=== PATIENT | female | born 1990 | race Caucasian/White ===

== ENCOUNTER 2023-01-09 14:37 | Outpatient (CLI) | payer OTHER, SELFPAY ==
--- NOTE | 2023-01-09 | ECG_ITS ---
Measurements Intervals [place] Rate: 70 P: 28 MA: 129 QRS: -27 QRSD: 105 T: 9 QT: 412 QTc: 446 Interpretive Statements SINUS RHYTHM INCOMPLETE RIGHT BUNDLE BRANCH BLOCK DELAYED PRECORDIAL R/S TRANSITION MINIMAL Q WAVES- HIGH LATERAL LEADS BORDERLINE T WAVE ABNORMALITY- ANT/INF LEADS BORDERLINE ECG NO PREVIOUS ECG AVAILABLE FOR COMPARISON Electronically Signed On 01-09-2023 15:22:04 CDT by Tk Barbosa D.O.
== END 2023-01-09 14:38 | disposition home or self-care (01) ==
PROVIDERS: PCP Emergency Medicine; Visit Provider Emergency Medicine
DX: Z01.818 Encounter for other preprocedural examination (principal); I45.10 Unspecified right bundle-branch block
CPT/HCPCS: 93005

== ENCOUNTER 2023-02-14 08:48 | Outpatient (CLI) | payer OTHER, SELFPAY ==
--- NOTE | 2023-02-14 | EST_ITS ---
Patient Info Name: Angely Carreno Age: 33 years : 1990 Gender: Female Ht: 64 in Wt: 219 lbs BSA: 2.17 m2 HR: 73 bpm BP: 133 / 90 mmHg Heart Rhythm: Sinus Rhythm Exam Date: 02/14/2023 9:40 AM Exam Location: [facility] Stress Patient Status: Outpatient Admit Date: 02/14/2023 Staff Ordering Physician: Tk Barbosa DO Attending Provider: Tk Barbosa DO Exercise Technologist: Jaquelin Gutierrez CT Exercise Physician: Tk Barbosa DO Exam Type: CA stress test treadmill Study Info Indications Z01.810 - Encounter for preprocedural cardiovascular examination R06.09 - Other forms of dyspnea A treadmill exercise stress test was performed. Summary 1. 1. Negative Vargas exercise stress test for ischemic ST changes by ECG criteria. 2. 2. Reduced functional capacity, achieving 8.5 METs of workload. 3. 3. Appropriate HR response to exercise. 4. 4. Appropriate HR recovery at 1 minute post exercise. 5. 5. No imaging with stress testing. 6. 6. Patient informed of the above results. Protocol: Vargas Rest HR: 73 bpm Peak HR: 151 bpm Rest Sys BP: 133 mmHg Peak Sys BP: 174 mmHg Max Pred HR: 186 bpm % Max Pred HR: 81 % Target HR: 158 bpm Max RPP: 26,274 bpm*mmHg Termination Reason: Motor/gait limitations, Shortness of breath Total Time: 7 min : 26 sec Rest Benito BP: 90 mmHg Peak Benito BP: 90 mmHg Resting ECG Sinus rhythm, IRBBB. Stress ECG No ST changes. Arrhythmias None. Report Signatures
== END 2023-02-14 08:49 | disposition home or self-care (01) ==
PROVIDERS: PCP Emergency Medicine; Visit Provider Internal Medicine Cardiovascular Disease
DX: R06.09 Other forms of dyspnea (principal)
CPT/HCPCS: 93017

== ENCOUNTER 2023-05-11 13:34 | Emergency (ER) | payer OTHER, SELFPAY ==
[2023-05-11] VITALS (19 sets, daily range): BP systolic 100–141; BP diastolic 72–91; PULSE 63–112; RESP 12–20; TEMP 36.4; O2SAT 96–100
[2023-05-11 14:16] LABS: Basophils Percent Auto 0.4 % (0.2-1.2); Eosinophils Absolute Auto 0.1 K/mm3 (0-0.3); Eosinophils Percent Auto 1.3 % (0-4.4); Hematocrit 39.1 % (37.0-47.0); Hemoglobin 12.8 g/dL (12.0-15.0); Immature Granulocyte Absolute 0.03 K/mm3 (0.00-0.031); Immature Granulocyte Percent A 0.4 % (0-0.5); Lymphocytes Absolute Auto 1.48 K/mm3 (0.9-3.2); Lymphocytes Percent Auto 17.4 % (18.3-44.2); Mean Corpuscular HGB Conc 32.7 g/dl (32-36); Mean Corpuscular Hemoglobin 27.5 pg (26-34); Mean Corpuscular Volume 84.1 fl (80-100); Mean Platelet Volume 10.1 fl (7.4-10.4); Monocytes Absolute Auto 0.5 K/mm3 (0.1-0.6); Monocytes Percent Auto 5.3 % (2.6-8.5); Neutrophils Absolute Auto 6.4 K/mm3 (1.3-6.7); Neutrophils Percent Auto 75.2 % (45.5-73.1); Platelet Count Result 295 k/mm3 (150-375); Red Blood Count 4.65 M/mm3 (4.2-5.4); Red Cell Distribution Width 16.2 % (11.5-14.5); White Blood Count 8.5 K/mm3 (4.5-10.0)
[2023-05-11 14:25] LABS: Alanine Aminotransferase 29 U/L (6-35); Albumin Level 4.5 g/dL (3.5-5.1); Alkaline Phosphatase 93 U/L (38-126); Anion Gap 14 mmol/L (8-16); Aspartate Amino Transferase 28 U/L (14-36); Bilirubin,Total 0.4 mg/dL (0.2-1.3); Blood Urea Nitrogen 12 mg/dL (7-17); Calcium 9.1 mg/dL (8.4-10.2); Carbon Dioxide 20 mmol/L (22-30); Chloride 104 mmol/L (98-107); Estimated CRCL calculation 134 ml/min; Estimated Glomerular Filt Rate > 60; Glucose 131 mg/dL (65-110); Lipase 468 U/L (23-300); Potassium 3.8 mmol/L (3.4-5.0); Sodium 138 mmol/L (137-145)
[2023-05-11 14:41] LABS: Appearance Urine Turbid (Clear); Bacteria Urine 4+ /hpf; Bilirubin Urine Negative (Negative); Blood Urine 3+ (Negative); Color Urine Dark Yellow (Yellow); Glucose Urine UA Negative (Negative); Ketones Urine 3+ mg/dL (Negative); Leukocyte Esterase Ur 2+ LEU/UL (Negative); Need Manual Microscopic Reviewed; Nitrate Urine Negative (Negative); Non Pathogenic Casts 0-2; Protein Urine 2+ mg/dL (Negative); RBC Urine 51-100 /hpf (0-2); Specific Grav Ur 1.024 (1.001-1.035); Squamous Epithelial Cell Urine Many /hpf (Few); WBC Urine 21-50 /hpf; pH Urine 5.5 (5.0-9.0)
[2023-05-11 14:42] LABS: Add Urine Microscopic? YES
[2023-05-11] MEDS: ONDANSETRON INJ 4 MG/2 ML VIAL IV PUSH (14:50)
[2023-05-11] MEDS: PANTOPRAZOLE SODIUM IV 40 MG VIAL IV PUSH (14:51)
[2023-05-11] MEDS: SODIUM CHLORIDE 0.9% IV 1,000 ML 999 ML IV CONT (14:51)
--- NOTE | 2023-05-11 16:21 | ED.GENADULT ---
HPI - General Adult General Chief complaint: Nausea/Vomiting/Diarrhea Stated complaint: vomiting Time Seen by Provider: 05/11/23 14:32 History of Present Illness HPI narrative: Patient is a 33-year-old female who presents ER with nausea and vomiting. Ongoing for 2 weeks. She is having difficulty keeping down any fluids. She recently had a gastric sleeve performed at [facility]. She had contacted her physician who told her to come to his facility for further evaluation. She reports her insurance does not cover her to go to [facility] so she came to the closest facility. She is having bowel movements and passing gas. There is no abdominal distention. Record search shows patient has prescription for Zofran and omeprazole at home. It looks like she just had promethazine prescribed today. Patient has no fevers or chills or sweats. She does report some dysuria as well. Occasional lower abdominal cramping. Related Data Home Medications Medication Instructions Recorded Confirmed No Home Medications 01/30/23 01/30/23 Allergies Allergy/AdvReac Type Severity Reaction Status Date / Time Penicillins Allergy Unknown Nausea and Verified 05/11/23 14:36 Vomiting Review of Systems Review of Systems: All systems reviewed & are unremarkable except as noted in HPI and below Constitutional: Constitutional: Denies chills, Denies fatigue and Denies fever(s) ENT: Denies nasal congestion and Denies sore throat Cardiovascular: Cardiovascular: Denies chest pain, Denies rapid heart rate and Denies radiating jaw, neck or arm pain Gastrointestinal: Gastrointestinal: Reports abdominal pain, Denies diarrhea, Reports nausea and Reports vomiting Genitourinary: Genitourinary: Denies nocturia, Reports dysuria and Denies flank pain PMFSH Past Medical History Medical History (Updated 05/11/23 @ 16:47 by Alvino Diane MD) GERD (gastroesophageal reflux disease) Surgical History Surgical History (Updated 05/11/23 @ 16:26 by Alvino Diane MD) History of gastric surgery Social History Social History (Updated 01/30/23 @ 08:30 by Paty Ellison [facility]) Smoking status: Former smoker Alcohol intake: never Substance use: never Exam Narrative: GENERAL: Uncomfortable-appearing, well-nourished, and in no acute distress. HEAD: Normocephalic, atraumatic. EYES: PERRL and EOMI. ENT: Mucous membranes moist. CHEST: Clear to auscultation. No respiratory distress. HEART: Tachycardic and regular. Normal peripheral pulses. ABDOMEN: Soft, nontender, nondistended. EXTREMITIES: Normal range of motion. No edema. SKIN: Warm, dry, no rash. NEURO: Alert and oriented x3. PSYCH: Normal mood and affect. Course Course Emergency Course: Patient feels much better with IV fluid and Zofran. She is tolerating oral fluids. Discharge home. Vital Signs Vital signs: Vital Signs Temperature 97.6 F 05/11/23 13:35 Pulse Rate 112 H 05/11/23 13:35 Respiratory Rate 18 05/11/23 13:35 Blood Pressure 141/91 H 05/11/23 13:35 Pulse Oximetry 98 05/11/23 13:35 Oxygen Delivery Room Air 05/11/23 13:35 Temperature 97.6 F 05/11/23 13:35 Pulse Rate 73 05/11/23 16:15 Respiratory Rate 17 05/11/23 16:15 Blood Pressure 115/80 05/11/23 16:01 Pulse Oximetry 100 05/11/23 16:15 Oxygen Delivery Room Air 05/11/23 13:35 Medical Decision Making Vital Signs Vital Signs: Vital Signs Temperature 97.6 F 05/11/23 13:35 Pulse Rate 112 H 05/11/23 13:35 Respiratory Rate 18 05/11/23 13:35 Blood Pressure 141/91 H 05/11/23 13:35 Pulse Oximetry 98 05/11/23 13:35 Oxygen Delivery Room Air 05/11/23 13:35 Temperature 97.6 F 05/11/23 13:35 Pulse Rate 73 05/11/23 16:15 Respiratory Rate 17 05/11/23 16:15 Blood Pressure 115/80 05/11/23 16:01 Pulse Oximetry 100 05/11/23 16:15 Oxygen Delivery Room Air 05/11/23 13:35 Lab Data 05/11/23 14:08 05/11/23 14:08
== END 2023-05-11 16:53 | disposition home or self-care (01) ==
PROVIDERS: Preventive Medicine Aerospace Medicine; Emergency Provider Emergency Medicine; PCP Emergency Medicine
DX: R11.2 Nausea with vomiting, unspecified (principal); K21.9 Gastro-esophageal reflux disease without esophagitis; Z98.84 Bariatric surgery status; Z87.891 Personal history of nicotine dependence
CPT/HCPCS: 36415; 80053; 81001; 81025; 83690; 85025; 87086; 87088; 96361; 96374; 96375; 99284; C9113; J2405; J7030

== ENCOUNTER 2023-08-10 08:11 | Outpatient (CLI) | payer OTHER, SELFPAY ==
--- NOTE | ~2023-08-10 | XR_ITS ---
Left foot Technique: AP and lateral views were obtained. Clinical History: Pain Findings: No acute fracture or dislocation is seen. Osseous alignment is anatomic. Joint spaces are p reserved without erosive or degenerative change. Soft tissues are unremarkable. Impression: Unremarkable left foot radiographs. Reviewed, dictated and finalized at location . Impression: Unremarkable left foot radiographs.
== END 2023-08-10 08:12 | disposition home or self-care (01) ==
PROVIDERS: PCP Emergency Medicine; Visit Provider Emergency Medicine
DX: M79.672 Pain in left foot (principal)
CPT/HCPCS: 73620

== ENCOUNTER 2023-09-08 12:25 | Outpatient (CLI) | payer OTHER, SELFPAY ==
--- NOTE | ~2023-09-08 | CT_ITS ---
EXAMINATION: CT abdomen pelvis w con DATE: 09/08/2023 12:55 INDICATION: Left lower quadrant abdominal pain. TECHNIQUE: Computed tomography (CT) of the abdomen and pelvis was performed with 100 mL Omnipaque 350 intravenous contrast. Automated exposure control and iterative reconstruction technique were employe d. The dose-length product was 348.57 mGy-cm. COMPARISON: None. FINDINGS: The visualized portions of the lung bases are clear without pneumonia or pleural effusion. The heart size is normal. No pericardial effusion. There are changes of gastric sleeve procedure. The liver, gallbladder, spleen, pancreas, adrenal glands, and kidneys are normal. There are uterine fibr oids measuring up to 17 mm. There are no dilated loops of bowel. The appendix is normal. There are no pathologically enlarged lymph nodes. There is no free intraperitoneal fluid. There is fat stranding in the body wall, which may be changes of abdominoplasty. There is mild lumbar spondylosis. IMPRESSION: 1. Uterine fibroids. Reviewed, dictated and finalized at location E. ING MACHINE TENDER IMPRESSION: 1. Uterine fibroids.
== END 2023-09-08 12:26 | disposition home or self-care (01) ==
PROVIDERS: PCP Emergency Medicine; Visit Provider Emergency Medicine
DX: R10.30 Lower abdominal pain, unspecified (principal); D25.9 Leiomyoma of uterus, unspecified
CPT/HCPCS: 74177; Q9967

== ENCOUNTER 2023-12-08 10:39 | Outpatient (CLI) | payer OTHER, SELFPAY ==
--- NOTE | ~2023-12-08 | MR_ITS ---
MRI of the brain Clinical History: Syncope Technique: Axial and sagittal T1-weighted images were acquired. These were followed by axial T2-weigh oralia, diffusion weighted, gradient, and FLAIR images. Coronal T1-weighted and FLAIR images were perfor med. Following intravenous administration of 13 cc MultiHance gadolinium, T1-weighted fat-sat imaging was performed in the axial and coronal and sagittal planes. Findings: No abnormal signal seen in the brain parenchyma. No acute infarct, intracranial hemorrhage, or mass lesion. Ventricles and subarachnoid spaces are unremarkable. Orbits are unremarkable. Paranasal sinuses and m astoid air cells are clear. Major intracranial flow voids are intact. Sagittal midline structures are intact. No abnormal postcontrast enhancement identified. No evidence for mesial temporal sclerosis. IMPRESSION: Normal exam. Reviewed, dictated and finalized at location . CURER IMPRESSION: Normal exam.
== END 2023-12-08 10:40 | disposition home or self-care (01) ==
PROVIDERS: PCP Emergency Medicine; Visit Provider Emergency Medicine
DX: R55 Syncope and collapse (principal)
CPT/HCPCS: 70553; A9577

== ENCOUNTER 2024-02-25 07:48 | Outpatient (CLI) | payer MEDICAID, SELFPAY ==
--- NOTE | 2024-02-25 08:04 | ECHO_ITS ---
Patient Info Name: Angely Carreno Age: 34 years : 1990 Gender: Female Ht: 64 in Wt: 116 lbs BSA: 1.54 m2 HR: 68 bpm BP: 110 / 76 mmHg Technical Quality: Fair Exam Date: 02/25/2024 8:14 AM Exam Location: [facility] Patient Status: Outpatient Admit Date: 02/25/2024 Staff Ordering Physician: Tk Barbosa DO [employer] Vehicle Assembly Supervisor: Kath Berger RDCS Attending Provider: Tk Barbosa DO Referring Physician: Familia OKEEFE; Exam Type: CA echo doppler color flow Study Info Indications R55 - Syncope and collapse Complete two-dimensional, color flow and Doppler transthoracic echocardiogram is performed. Summary 1. Complete two-dimensional, color flow and Doppler transthoracic echocardiogram is performed. 2. Left ventricular chamber dimension is normal. 3. Left ventricular systolic function is normal, estimated at 60-65%. 4. The left ventricular diastolic function is normal. 5. E/e' 4 is not elevated. 6. There is trace mitral valve regurgitation. Left Ventricle E/e' 4 is not elevated. Left ventricular chamber dimension is normal. Left ventricular systolic function is normal, estimated at 60-65%. The left ventricular diastolic function is normal. Right Ventricle Right ventricular systolic function is normal and with normal TAPSE 2.9 cm. Right ventricular chamber dimension is normal. Left Atria Left atrial chamber dimension is normal. Right Atria Right atrial chamber dimension is normal. Aortic Valve The aortic valve is trileaflet. There is no aortic valve stenosis. There is no aortic valve regurgitation. Pulmonic Valve There is no pulmonic regurgitation. Mitral Valve There is no mitral valve stenosis. There is trace mitral valve regurgitation. Tricuspid Valve There is no tricuspid valve regurgitation. Pericardium/Pleural There is no pericardial effusion. Inferior Vena Cava Normal inferior vena cava with >50% collapse upon inspiration consistent with normal right atrial pressure, 5 mmHg. Aorta The aortic root size at the sinus of Valsalva is normal. Tricuspid Valve Name Value Normal Estimated PAP/RSVP RA Pressure 5 mmHg <=5 Report Signatures
== END 2024-02-25 07:49 | disposition home or self-care (01) ==
LOC: ANHCARD 07:51
PROVIDERS: PCP Emergency Medicine; Visit Provider Internal Medicine Cardiovascular Disease
DX: R55 Syncope and collapse (principal)
CPT/HCPCS: 93306